=== PATIENT | female | born 1945 | race Caucasian/White ===

== ENCOUNTER 2020-04-05 00:06 | Emergency (ER) | payer OTHER ==
[2020-04-05 00:45] LABS: Absolute Lymphocytes (CBC) 2.6 K/uL (0.7-4.9); Basophils % 0.4 % (0-1.3); Lymphocytes % 27.1 % (15.3-44.8); MPV 8.2 fL (7.6-11.3); RBC Red Blood Cell Count 4.53 M/uL (3.86-4.86)
[2020-04-05 00:59] LABS: ALT/SGPT 17 U/L (12-78); AST/SGOT 14 U/L (15-37); Albumin 3.3 g/dL (3.4-5.0); Alkaline Phosphatase 70 U/L (45-117); BUN Blood Urea Nitrogen 15 mg/dL (7-18); Bicarbonate 23 mmol/L (21-32); Bilirubin Direct < 0.1 mg/dL (0-0.2); Bilirubin Total 0.3 mg/dL (0.2-1.0); Glucose Level 131 mg/dL (74-106); Potassium 3.4 mmol/L (3.5-5.1); Protein, Total 6.7 g/dL (6.4-8.2); Sodium Level 143 mmol/L (136-145)
[2020-04-05 00:59] LABS: Barbiturates NEGATIVE (NEGATIVE); Benzodiazepines POSITIVE (NEGATIVE); Cocaine NEGATIVE (NEGATIVE); METHAMPHETAM NEGATIVE (NEGATIVE); Methadone NEGATIVE (NEGATIVE); Opiates NEGATIVE (NEGATIVE); Phencyclidine NEGATIVE (NEGATIVE); THC Cannibis NEGATIVE (NEGATIVE)
[2020-04-05 01:02] LABS: Urine Blood TRACE (NEG); Urine Glucose NEGATIVE (NEG); Urine Protein NEGATIVE (NEG); Urine Specific Gravity 1.015 (1.005-1.030); Urine pH 5.5 (5.0-7.0)
--- NOTE | 2020-04-05 06:29 | EDPHYS ---
Physician Documentation [facility] Name: Gali Moreno Age: 74 yrs Sex: Female : 1945 Arrival Date: 04/05/2020 Time: 00:07 Bed 3 Private MD: ED Physician Rajiv Rodriguez HPI: 04/05 00:15 This 74 yrs old Female presents to ER via EMS with complaints of sleepiness, rn took valium. 00:15 Reports took 20mg valium and shot of ETOH prior to arrival, maybe an hour prior to rn arrival, denies suicide attempt for thoughts, did it to sleep. Normally takes 5mg valium 3 times daily. Reports arguing with son and wanted to sleep. EMS not sure who called, said police at scene.. Onset: The symptoms/episode began/occurred 1 hour(s) ago. Severity of symptoms: At their worst the symptoms were mild in the emergency department the symptoms are unchanged. The patient has not experienced similar symptoms in the past. The patient has not recently seen a physician. Historical: - Allergies: 00:13 No Known Allergies; ea - PMHx: 00:13 Hypertension; Anxiety; ea - Immunization history:: Adult Immunizations unknown. - Social history:: Smoking status: unknown. - Family history:: not pertinent. - Hospitalizations: : No recent hospitalization is reported. ROS: 00:15 Constitutional: Negative for fever, chills, and weight loss, Eyes: Negative for injury, rn pain, redness, and discharge, Neck: Negative for injury, pain, and swelling, Cardiovascular: Negative for chest pain, palpitations, and edema, Respiratory: Negative for shortness of breath, cough, wheezing, and pleuritic chest pain, Abdomen/GI: Negative for abdominal pain, nausea, vomiting, diarrhea, and constipation, MS/Extremity: Negative for injury and deformity, Skin: Negative for injury, rash, and discoloration, Neuro: Negative for headache, weakness, numbness, tingling, and seizure. Exam: 00:15 Constitutional: Overweight patient, sleepy but talkative and making jokes. Head/Face: rn Normocephalic, atraumatic. ENT: MMM Cardiovascular: Regular rate and rhythm. No pulse deficits. Respiratory: No increased work of breathing, no retractions or nasal flaring. Abdomen/GI: soft, non-tender Skin: Warm, dry with normal turgor. Normal color with no rashes, no lesions, and no evidence of cellulitis. MS/ Extremity: Pulses equal, no cyanosis. Neurovascular intact. Full, normal range of motion. Equal circumference. Neuro: Awake, somnolent, GCS 15. 00:23 ECG was reviewed by the Attending Physician. rn Vital Signs: 00:07 BP 124 / 85; Pulse 68; Resp 16; Temp 97.8; Pulse Ox 93% ; Weight 85.73 kg; Height 5 ft. ea 2 in. (157.48 cm); 00:46 BP 134 / 98; Pulse 61; Resp 16; Pulse Ox 94% ; rr5 01:48 BP 112 / 75; Pulse 55; Resp 15; Pulse Ox 94% ; rr5 02:40 BP 115 / 70; Pulse 63; Resp 17; Pulse Ox 95% ; rr5 03:30 BP 111 / 79; Pulse 56; Resp 15; Pulse Ox 94% ; rr5 06:38 BP 118 / 70; Pulse 60; Resp 18; Pulse Ox 95% on R/A; ea 08:13 BP 112 / 61; Pulse 61; Resp 15; Pulse Ox 97% on R/A; hb 09:15 BP 116 / 66; Pulse 62; Resp 16; Pulse Ox 99% on R/A; hb 00:07 Body Mass Index 34.57 (85.73 kg, 157.48 cm) ea MDM: 00:08 Patient medically screened. rn 02:02 ED course: Sleeping, awakens to tactile stimulation. No oxygen requirement. Will cont rn to monitor. . 03:53 Differential Diagnosis. Data reviewed: vital signs, nurses notes. ED course: Pt more rn awake, wants to leave, but requiring assistance to walk, not sober enough to leave, will cont to observe. . 06:00 ED course: Nurse Gena spoke with son, confirms that was not suicide attempt, was just rn trying to sleep and forget about her power being out. Will monitor longer here in ER and dc home with ride when can walk on her own without assistance.. 06:27 Counseling: I had a detailed discussion with the patient and/or guardian regarding: the rn historical points, exam findings, and any diagnostic results supporting the discharge/admit diagnosis, lab results, the need for outpatient follow up, to return to the emergency department if symptoms worsen or persist or if there are any questions or concerns that arise at home. Response to treatment: the patient's symptoms have markedly improved after treatment, and as a result, I will discharge patient. Special discussion: I discussed with the patient/guardian in detail that at this point there is no indication for admission to the hospital. It is understood, however, that if the symptoms persist or worsen the patient needs to return immediately for re-evaluation. ED course: Much more alert now, using phone, will dc home with ride.. 04/05 00:09 Order name: Acetaminophen; Complete Time: rn 04/05 00:09 Order name: Basic Metabolic Panel; Complete Time: rn 04/05 00:09 Order name: CBC with Diff; Complete Time: rn 04/05 00:09 Order name: ETOH Level; Complete Time: rn 04/05 00:09 Order name: Hepatic Function; Complete Time: rn 04/05 00:09 Order name: Salicylate; Complete Time: rn 04/05 00:09 Order name: IV Start; Complete Time: rn 04/05 00:09 Order name: Urine Drug Screen; Complete Time: rn 04/05 00:09 Order name: EKG; Complete Time: 00 rn 04/05 00:09 Order name: EKG - Nurse/Tech; Complete Time: rn 04/05 00:09 Order name: Labs collected and sent; Complete Time: 00: rn 04/05 00:09 Order name: Urine Dipstick-Ancillary (obtain specimen); Complete Time: 00:36 rn 04/05 00:27 Order name: Glucose, Ancillary Testing; Complete Time: EDPA 04/05 00:40 Order name: Urine Dipstick--Ancillary (enter results); Complete Time: ds4 EC:23 Rate is 62 beats/min. Rhythm is regular. QRS Alpine is Normal. OR interval is normal. QRS rn interval is normal. QT interval is normal. No Q waves. T waves are Normal. No ST changes noted. Clinical impression: NSR w/ Non-specific ST/T Changes. Interpreted by me. Reviewed by me. Administered Medications: No medications were administered Disposition: 04/05/20 06:28 Discharged to Home. Impression: Adverse effect of benzodiazepines. - Condition is Stable. - Discharge Instructions: Benzodiazepine Overdose. - Medication Reconciliation Form, Thank You Letter, Antibiotic Education, Prescription Opioid Use form. - Follow up: Private Physician; When: As needed; Reason: Recheck today's complaints, Re-evaluation by your physician. - Problem is new. - Symptoms have improved. Signatures: Dispatcher [employer] EDMS Rajiv Rodriguez MD MD rn Baxter, Heather, RN RN Gena Valenzuela RN RN ea Corrections: (The following items were deleted from the chart) 09:33 06:28 04/05/2020 06:28 Discharged to Home. Impression: Adverse effect of hb benzodiazepines. Condition is Stable. Discharge Instructions: Benzodiazepine Overdose. Forms are Medication Reconciliation Form, Thank You Letter, Antibiotic Education, Prescription Opioid Use. Follow up: Private Physician; When: As needed; Reason: Recheck today's complaints, Re-evaluation by your physician. Problem is new. Symptoms have improved. rn
--- NOTE | 2020-04-05 06:29 | ER ---
Nurse's Notes [facility] Name: Gali Moreno Age: 74 yrs Sex: Female : 1945 Arrival Date: 04/05/2020 Time: 00:07 Bed 3 Private MD: Diagnosis: Adverse effect of benzodiazepines Presentation: 04/05 00:07 Chief complaint: EMS states: Reports pt took 100 mg of Diazepam about an hour and a ea half ago. Pt reports she only took 20 mg total. Coronavirus screen: At this time, the client does not indicate any symptoms associated with coronavirus-19. Ebola Screen: No symptoms or risks identified at this time. Initial Sepsis Screen: Does the patient meet any 2 criteria? No. Patient's initial sepsis screen is negative. Does the patient have a suspected source of infection? No. Patient's initial sepsis screen is negative. Risk Assessment: Do you want to hurt yourself or someone else? Patient reports no desire to harm self or others. Onset of symptoms was April 05, 2020. 00:07 Method Of Arrival: EMS: [facility] ea 00:07 Acuity: KEITH 3 ea Triage Assessment: 00:13 General: Appears in no apparent distress. Behavior is drowsy. Pain: Denies pain. Neuro: ea Level of Consciousness is drowsy. Oriented to person, time, situation. Respiratory: Airway is patent Respiratory effort is even, unlabored, Respiratory pattern is regular, symmetrical. Derm: Skin is pink, warm \\T\\ dry. Historical: - Allergies: 00:13 No Known Allergies; ea - PMHx: 00:13 Hypertension; Anxiety; ea - Immunization history:: Adult Immunizations unknown. - Social history:: Smoking status: unknown. - Family history:: not pertinent. - Hospitalizations: : No recent hospitalization is reported. Screenin:11 Abuse screen: Denies threats or abuse. Nutritional screening: No deficits noted. ea Tuberculosis screening: No symptoms or risk factors identified. Fall Risk IV access (20 points). Assessment: 00:25 General: Appears in no apparent distress. comfortable, Behavior is cooperative, drowsy. rr5 Pain: Denies pain. Neuro: Level of Consciousness is obeys commands, drowsy. Oriented to person, place, time. Cardiovascular: Capillary refill < 3 seconds Patient's skin is warm and dry. Respiratory: Airway is patent Respiratory effort is even, unlabored, Respiratory pattern is regular, symmetrical. GI: No signs and/or symptoms were reported involving the gastrointestinal system. : No signs and/or symptoms were reported regarding the genitourinary system. EENT: No signs and/or symptoms were reported regarding the EENT system. Derm: Skin is intact, is healthy with good turgor, Skin temperature is warm. Musculoskeletal: Circulation, motion, and sensation intact. Capillary refill < 3 seconds. 00:30 Reassessment: Pt denies SI and HI. ea 00:44 Reassessment: spoke to poison control staff "DENNIS", recommend to watch out for rr5 respiratory depression, give supplemental oxygen if needed, keep for observation for 4-6 hours if fully awake, speech is clear, able to stand stand patient can be discharge. 01:47 Reassessment: Patient and/or family updated on plan of care and expected duration. Pain ea level reassessed. Pt resting with eyes closed, respirations even and unlabored. Pt opens eyes with painful stimulus. Is able to follow commands. 02:35 Reassessment: [phone] lauren healy (friend) [phone] tess (brother). rr5 02:36 Reassessment: Patient appears in no apparent distress at this time. Patient is alert, rr5 oriented x 3, equal unlabored respirations, skin warm/dry/pink. awakes, drowsy, removed her IV cannula, sits on the side of the bed and wants to go home. ED provider aware. 03:36 Reassessment: Patient appears in no apparent distress at this time. Patient is alert, rr5 oriented x 3, equal unlabored respirations, skin warm/dry/pink. sat on a recliner warm blanket given, patient is drowsy. 04:35 Reassessment: Patient and/or family updated on plan of care and expected duration. Pain ea level reassessed. Pt resting with eyes closed, respirations even and unlabored, chest expansions even and symmetrical. No s/s of pain or discomfort noted at this time. 05:48 Reassessment: Misha Haque (SON) POA [phone] , cell phone [phone]. ea 06:35 Reassessment: Patient and/or family updated on plan of care and expected duration. Pain ea level reassessed. Pt more alert, remains a bit groggy but wakes up with verbal stimulus. Pt respiration even and unlabored, chest expansions even and symmetrical. Pt reports she is still groggy. Pt up for discharge, orders to discharge patient when she is more awake. 08:00 Reassessment: Patient appears in no apparent distress at this time. No changes from hb previously documented assessment. 08:47 Reassessment: Pt alert, dressed, and in recliner,. NAD. Awaiting family at this time. hb Vital Signs: 00:07 BP 124 / 85; Pulse 68; Resp 16; Temp 97.8; Pulse Ox 93% ; Weight 85.73 kg; Height 5 ft. ea 2 in. (157.48 cm); 00:46 BP 134 / 98; Pulse 61; Resp 16; Pulse Ox 94% ; rr5 01:48 BP 112 / 75; Pulse 55; Resp 15; Pulse Ox 94% ; rr5 02:40 BP 115 / 70; Pulse 63; Resp 17; Pulse Ox 95% ; rr5 03:30 BP 111 / 79; Pulse 56; Resp 15; Pulse Ox 94% ; rr5 06:38 BP 118 / 70; Pulse 60; Resp 18; Pulse Ox 95% on R/A; ea 08:13 BP 112 / 61; Pulse 61; Resp 15; Pulse Ox 97% on R/A; hb 09:15 BP 116 / 66; Pulse 62; Resp 16; Pulse Ox 99% on R/A; hb 00:07 Body Mass Index 34.57 (85.73 kg, 157.48 cm) ea ED Course: 00:07 Patient arrived in ED. ea 00:08 Rajiv Rodriguez MD is Attending Physician. rn 00:11 Triage completed. ea 00:12 Arm band placed on right wrist. Patient placed in an exam room, on a stretcher, on ea bobbin winder, on pulse oximetry. 00:12 Patient has correct armband on for positive identification. Bed in low position. Call ea light in reach. Side rails up X2. 00:13 Gena Valenzuela, CHARITY is Primary Nurse. ea 00:15 Inserted saline lock: 18 gauge in right hand, using aseptic technique. Blood collected. rr5 00:20 EKG done, by ED staff, reviewed by Rajiv Rodriguez MD. rr5 00:24 Straight cath inserted, using sterile technique, 16 Fr. Specimen obtained. by brie rr5 industrial controls technician Returned clear yellow urine. Patient tolerated well. 00:25 microbiology director on. Pulse ox on. NIBP on. rr5 02:37 IV discontinued, intact, bleeding controlled, No redness/swelling at site. Pressure rr5 dressing applied, removed by patient. 04:41 No provider procedures requiring assistance completed. rr5 Administered Medications: No medications were administered Outcome: 06:28 Discharge ordered by MD. rn 09:32 Discharged to home via wheelchair, with family. 09:32 Condition: stable 09:32 Discharge instructions given to patient, family, Instructed on discharge instructions, follow up and referral plans. medication usage, Demonstrated understanding of instructions, follow-up care, medications. 09:33 Patient left the ED. Signatures: Rajiv Rodriguez MD MD rn Baxter, Heather RN RN Gena Valenzuela RN RN Marino Kerr RN RN rr5 Corrections: (The following items were deleted from the chart) 00:11 00:07 Chief complaint: EMS states: Reports pt took 100 mg of Diazepam about an hour and ea a half ago. ea
[2020-04-05 09:38] VITALS: TEMP 97.8
[2020-04-05 09:46] VITALS: BP 116/66; O2SAT 99
== END 2020-04-05 09:33 | disposition home or self-care (01) ==
LOC: ER 00:06
DX: R40.0 Somnolence (principal); T42.4X1A Poisoning by benzodiazepines, accidental (unintentional), initial encounter; Y92.9 Unspecified place or not applicable
CPT/HCPCS: 36415; 51702; 80048; 80076; 80307; 80320; 80329; 81003; 82947; 85025; 99284

== ENCOUNTER 2020-06-29 06:25 | Day surgery (SDC) | payer OTHER ==
[2020-06-27 10:54] LABS: Urine Appearance CLEAR (Clear); Urine Bilirubin NEGATIVE (Negataive); Urine Blood NEGATIVE (Negative); Urine Color YELLOW (Yellow); Urine Glucose NEGATIVE (Negative); Urine Protein NEGATIVE (Negative); Urine Specific Gravity <=1.005 (1.005-1.030); Urine Urobilinogen 0.2 mg/dL (0.2-1.0)
[2020-06-27 11:00] LABS: Basophils % 0.7 % (0-1.3); Hematocrit 42.9 % (36.0-45.0); Lymphocytes % 38.2 % (15.3-44.8); MPV 7.8 fL (7.6-11.3)
[2020-06-27 11:04] LABS: Protime INR 0.91
[2020-06-27 11:06] LABS: Urine Microscopic Reflex NO UMIC
[2020-06-27 11:21] LABS: Potassium 3.7 mmol/L (3.5-5.1)
[2020-06-29] MEDS ORDERED: SCOPOLAMINE HYDROBROMIDE PATCH TD ONE (07:18)
[2020-06-29] MEDS ORDERED: Ringers Lactate 1,000 ML IV ONE (07:18)
[2020-06-29] MEDS ORDERED: CEFAZOLIN/SWI 2gm 2 GM/20 ML SYR ONE (07:18)
[2020-06-29] MEDS ORDERED: propofoL 200 MG/20 ML VIAL IV ONE (07:24)
[2020-06-29] MEDS ORDERED: KETAMINE HCL 500 MG/5 ML VIAL ONE (07:24)
[2020-06-29] MEDS ORDERED: MIDAZOLAM HCL 2 MG/2 ML INJ ONE (07:24)
[2020-06-29] MEDS ORDERED: dexAMETHasone 10 MG/ML VIAL ONE (07:24)
[2020-06-29] MEDS ORDERED: FENTANYL CITR 250 MCG/5 ML ONE (07:24)
[2020-06-29] MEDS ORDERED: NS 0.9% VIAL 10 ML ONE (07:25)
[2020-06-29] MEDS ORDERED: ONDANSETRON 4 MG/2 ML VIAL ONE (07:25)
[2020-06-29] MEDS ORDERED: LIDOCAINE 1% MPF 2 ML AMPULE ONE (07:25)
[2020-06-29] MEDS ORDERED: ROCURONIUM 50 MG/5 ML VIAL IV ONE (07:25)
[2020-06-29] MEDS ORDERED: NA CHLORIDE 0.9% 100 ML IV ONE (07:25)
[2020-06-29] MEDS ORDERED: CEFAZOLIN SODIUM 1 GM/VIAL ONE (07:25)
[2020-06-29] MEDS ORDERED: EPHEDRINE SULF 50 MG/ML VIAL ONE (08:24)
[2020-06-29] MEDS: VASOPRESSIN 20 UNIT/ML VIAL ONE ×2 (08:36→09:30)
[2020-06-29] MEDS ORDERED: NA CHLORIDE 0.9% 1,000 ML ONE (09:14)
[2020-06-29] MEDS ORDERED: VECURONIUM 10 MG/VIAL IV ONE (09:41)
[2020-06-29] MEDS ORDERED: PROMETHAZINE INJ 25 MG/ML AMP IV PRN (10:39)
[2020-06-29] MEDS ORDERED: ACETAMINOPHEN 500 MG TAB PO PRN (10:39)
[2020-06-29] MEDS ORDERED: IBUPROFEN 600 MG TAB PO PRN (10:39)
[2020-06-29] MEDS ORDERED: NEOSTIGMINE 1 MG/ML -5 ML ONE (10:42)
[2020-06-29] MEDS ORDERED: TIZANIDINE 4 MG TABLET PO PRN (10:42)
[2020-06-29] MEDS ORDERED: GLYCOPYRROLATE 0.2 MG/ML SYR ONE (10:42)
--- NOTE | 2020-06-29 10:49 | P.BOP ---
Preoperative diagnosis: pelvic floor prolapse, DENNIS Postoperative diagnosis: stg2 anterior, stg3 posterior wall defects, post enterocele, DENNIS Primary procedure: post site specific defect/ post enterocele, perineal body repairs Secondary procedure: ant repair, T-O MUS(TVT-O) cysto Die Cast Die Maker: Enriqueta Garrison Estimated blood loss: 50, ZV=388 Specimen: none Findings: -2/-1/-6/4/mod/7/0/+2/na, distal post defect/avulsion of RVS from R wall,PB Anesthesia: General Complications: None Drain(s): Urinary catheter Implants: TVT-O Fluids & blood products: blood none Transferred to: Recovery Room Condition: Good
[2020-06-29] MEDS ORDERED: Ringers Lactate 1,000 ML IV SCH (11:00)
[2020-06-29] MEDS ORDERED: AMLODIPINE 2.5 MG TAB PO SCH (12:00)
[2020-06-29] MEDS: HYDROMORPHONE HCL 1 MG/ML INJ IV PRN ×2 (12:21→17:26)
[2020-06-29 12:51] VITALS: O2SAT 96
[2020-06-29] MEDS: VALSARTAN 40 MG TAB PO SCH (20:57)
[2020-06-29] MEDS: GABAPENTIN 100 MG CAP PO SCH (20:57)
[2020-06-30] MEDS: HYDROMORPHONE HCL 1 MG/ML INJ IV PRN ×2 (01:15→06:19)
[2020-06-30 06:19] LABS: Absolute Lymphocytes (CBC) 3.1 K/uL (0.7-4.9); Basophils % 0.3 % (0-1.3); Hematocrit 37.8 % (36.0-45.0); Lymphocytes % 20.5 % (15.3-44.8); MPV 7.9 fL (7.6-11.3); RBC Red Blood Cell Count 4.38 M/uL (3.86-4.86)
[2020-06-30] MEDS: VALSARTAN 40 MG TAB PO SCH (09:00)
[2020-06-30] MEDS ORDERED: CETIRIZINE HCL 5 MG TABLET PO SCH (09:00)
[2020-06-30] MEDS ORDERED: FLUTICASONE 50MCG NASAL SPRAY NAS SCH (09:00)
[2020-06-30] MEDS ORDERED: PROPRANOLOL HCL 60 MG SA CAP PO SCH (09:00)
[2020-06-30] MEDS ORDERED: HOME MED 1 EA UNK (Dexlansoprazole [Dexilant] 30 MG Cap.Dr.Bp) PO SCH (09:00)
[2020-06-30] MEDS ORDERED: EZETIMIBE 10 MG TAB PO SCH (09:00)
[2020-06-30] MEDS ORDERED: PANTOPRAZOLE 40MG TABLET PO SCH (09:00)
[2020-06-30] MEDS: GABAPENTIN 100 MG CAP PO SCH (09:10)
[2020-06-30 09:41] VITALS: BP 159/83
[2020-06-30 09:46] VITALS: TEMP 97.4
[2020-06-30] MEDS ORDERED: NA CIT/CITRIC AC 30 ML ORAL UDC PO ONE (10:25)
[2020-06-30] MEDS ORDERED: FAMOTIDINE 20 MG/2 ML VIAL IV PRN (11:00)
--- NOTE | 2020-07-06 23:58 | OP ---
Date of Procedure: 06/29/2020 Surgeon: Aviva Marquez MD Private Equity Associate: Enriqueta Garrison. Preoperative Diagnoses: Pelvic floor prolapse, stress urinary incontinence, both anterior-posterior pineda. Postoperative Diagnoses: Stage II anterior, stage III posterior wall defects, posterior enterocele, stress urinary incontinence. Procedures Performed: Posterior wall site-specific defect repair, posterior enterocele repair, perin eal body repair, then anterior repair for an anterior midline defect, transobturator mid urethral sli ng and cystoscopy. Anesthesia: General endotracheal. Ebl: 50. Urine Output: 300. Specimens: No specimens. Complications: No complications. Drains: Alcantara catheter and vaginal packing. Implants: Transobturator TVTO. Condition: The patient's condition was stable. Findings: Pop Q -2, -1, -6, 4, moderate 7, 0, +2, NA. Distal posterior defect, avulsion of the rect ovaginal septum to the right wall and the perineal body. Anterior midline defect, which was correcte d by pulling down the proximal rectovaginal septum and precervical fascia down to the level of the UV J and reattachment here. On cystoscopy, both ureteric orifices had just strong jets of urine from th em and rest of the system normal. Indications: The patient is a 75-year-old female who presented with symptoms of prolapse, evaluated clinically, explained all the defects, use of pessary and surgery for repair were all reviewed with t he patient. The patient declined the pessary due to the difficulty in use and for continuous ongoing use . She wanted to proceed with surgery. She is a Hindu and she has full un derstanding of all the consequences of an uncontrolled bleeding leading to even lethal consequences a fter all resuscitative methods with standard of care for Hindu have been used. She also was very clear about how she did not want any blood products return back into her body with a Cell-Sa kleber type device. Fully understanding and fully consenting for the procedure as well as no blood prod ucts for resuscitation purposes. After she had good understanding and consent process, annie mcelroy was consented for a vaginal prolapse repair after understanding the abdominal and vagina l repairs, consented for vaginal repair and on urodynamic testing did prove to have stress urinary in continence, and so mid urethral sling was the only graft to be used. Procedure In Detail: She was consented. 3 g of Ancef were given. She was brought to the OR. In th e preoperative area, her son was available to discuss all this and I consented her again. Then, she was taken back to OR, placed in a supine fashion on the operating table. General anesthesia was give n. Placed in a dorsal lithotomy position. Abdomen, vulva, vagina, and perineum were prepped and rosa elena ped in a sterile fashion. Alcantara was placed to drain the bladder and then pop Q exam was performed wi the findings as above. Since the apex was very well supported, the patient just needed an anterio r-posterior repair that what she underwent. The base defect most prominent was a posterior defect, s o we started to work on this. After doing a rectovaginal exam and changing gloves, we identified the distal defect that the patient had. Then, a mitra-shaped vaginal epithelial incision was made in the lower 1/2 of the vaginal ep ithelium. Dilute vasopressin 30 cc was injected. Once the epithelium over the lower half was dissec bird, the flaps on each side were raised using Allis clamps and sharp dissection with scissors. Once the entire rectovaginal septum was dissected away from the vaginal epithelium, then I entered the pos terior enterocele towards the proximal part of the wall. Then, there was a very clear site-specific defect that was present in the right lateral wall. There was an avulsion defect to the right sidewal l as well as on the right pararectal sulcus and then to the perineal body. Once this was all identif ied and I could see how the perineal body itself was defective, then the incision was extended over t he perineum at least 4 cm in a hemostatic fashion. The perineal body was dissected and exposed. The first part repaired was the posterior enterocele in the pursestring fashion. This was reduced back. This was a very small one in the left apex. Once this was done, the posterior wall appeared to be well attached to the top and site-specific defect repair with 2-0 PDS in a continuous running fashion was done. The perineal body reconstruction was performed with the help of 2-0 Vicryl interrupted dawn tures. Once they were placed, the PDS suture was passed to reattach the connective tissue in the rec tovaginal septum to the perineal body. Once this was done, the sutures were tied. Then vaginal epit helium was an is pulled down as an advancement flap and the transverse incision from [id number] at the level of the hymen right inside it was fashioned and then this was closed with a continuous runni ng horizontal mattress 2-0 Vicryl. Rectal exam was performed. No evidence of any trauma to the rect um and anal canal. Attention was directed to the transverse defect in the anterior wall. There appeared to be loss of r ugae in the distal anterior wall. This was considered to be a transverse site-specific defect and as there was a similar kind of defect in the bottom as well, gave me assurance that this would be a kleber y good procedure to perform. Once this was decided, dilute vasopressin 20 cc was injected in the mid line starting at the urethrovesical junction going proximally about 3 cm. A triangular skin incision was made. The vaginal epithelium was excised. Underlying connective tissue was exposed. Then the transverse defect was closed after creating flaps on both sides. Then, the underlying connective tis mundo was brought with 2-0 PDS in a continuous running horizontal mattress fashion and tied. Then the vaginal epithelial edges were brought too in a transverse fashion distally with the help of 2-0 Vicry l in a horizontal mattress fashion. Mid urethral area was picked up with 2 Allis clamps. Then dissection was performed under these with its lateral shoulder at a 45-degree angle to the horizontal and vertical planes. Once the obturator membrane was perforated, the instrument was opened up and the tract was widened as the instrument was retrieved. Similar dissection performed on the opposite side without any problems. Then, the TVTO was opened up. Wing guide was placed, spike passed. Exit point at the marked spot 2 cm above the ho rizontal line dropped at the level of the external meatus. This was 2 cm outside the groin fold avoi ding the adductor longus tendon. Then after the plastic sheath was retrieved, the spike was removed. A similar path was taken on the opposite side placing the sheath and then the wing guide. The dila tor and the plastic sheaths were pulled out and trimmed. Then sling was tensioned in the middle with the help of Nahomybaum scissors and the sheaths were pulled out. Mesh was trimmed, flushed with the skin. The mesh was irrigated with warm normal saline and the vaginal epithelial closure was with 3- 0 Vicryl in a continuous running fashion. Then, skin glue was applied in the groin incisions. The F oley was removed. Cystoscopy was performed. No evidence of any trauma to the bladder or foreign bod y like the mesh and strong jets of urine from both ureteric orifices. No evidence of any bladder skylar ors. Bladder was then drained. Vagina was packed. Alcantara was left in place after the bladder was drained and Alcantara was removed. Ins trument, needle, and sponge counts were correct at the end of the case. The patient did not need any transfusion. Findings were discussed with her son. BALA/NICOLASA Voice ID: [id number] Report ID: [id number]
== END 2020-06-30 11:15 | disposition home or self-care (01) ==
LOC: OR 06:25 → 2ND-WC 11:02 → OR 06-30 11:15
PROVIDERS: ATTEND Obstetrics & Gynecology
PROC: 0JQC0ZZ Repair Pelvic Region Subcutaneous Tissue and Fascia, Open Approach (ICD-10-PCS; 2020-06-29)
PROC: 0TSD4ZZ Reposition Urethra, Percutaneous Endoscopic Approach (ICD-10-PCS; 2020-06-29)
PROC: 0UQF0ZZ Repair Cul-de-sac, Open Approach (ICD-10-PCS; principal; 2020-06-29 07:30)
DX: N99.3 Prolapse of vaginal vault after hysterectomy (principal); N81.12 Cystocele, lateral; N81.6 Rectocele; N39.3 Stress incontinence (female) (male); N95.2 Postmenopausal atrophic vaginitis; R39.14 Feeling of incomplete bladder emptying; Z20.822 Contact with and (suspected) exposure to COVID-19
CPT/HCPCS: 85025 ×2; 80048; 36415 ×2; 85610; 85730; 81003; 94010; 57265; 57288; U0003; J2704; J2550; J2250; J3010; J1100; J1170 ×3; J2710; J0690 ×2; J7120 ×3; J7030; J2405